=== PATIENT | male | born 1960 | race Caucasian/White ===

== ENCOUNTER 2018-03-25 16:28 | Outpatient (CLI) | payer OTHER ==
[2018-03-25 16:42] LABS: BASOPHILS % 0.2 (0.0-1.5); EOSINOPHILS % 0.8 % (0.0-6.8); MEAN CORPUSCULAR HEMOGLOBIN 27.3 pg (28.0-34.0); NEUTROPHILS # 4.5 # k/uL (1.4-7.7)
[2018-03-25 16:50] LABS: eGFR (Non-African) > 60
== END 2018-03-25 16:30 ==
LOC: LAB 16:28
PROVIDERS: ATTEND General Practice
DX: R10.9 Unspecified abdominal pain (principal)
CPT/HCPCS: 80053; 85025

== ENCOUNTER 2018-05-12 09:12 | Outpatient (CLI) | payer OTHER ==
[2018-05-12 09:25] LABS: BASOPHILS % 0.3 (0.0-1.5); EOSINOPHILS % 1.1 % (0.0-6.8); MEAN CORPUSCULAR HEMOGLOBIN 27.6 pg (28.0-34.0); MONOCYTES % 5.8 % (0.0-11.0)
[2018-05-12 09:26] LABS: NEUTROPHILS # 8.1 # k/uL (1.4-7.7)
[2018-05-12 09:28] LABS: eGFR (Non-African) > 60
== END 2018-05-12 09:13 ==
LOC: LAB 09:12
PROVIDERS: ATTEND General Practice
DX: K56.609 Unspecified intestinal obstruction, unspecified as to partial versus complete obstruction (principal); Z85.89 Personal history of malignant neoplasm of other organs and systems
CPT/HCPCS: 36415; 80053; 85025

== ENCOUNTER 2018-05-13 10:52 | Outpatient (CLI) | payer OTHER ==
[2018-05-13 11:03] LABS: MEAN CORPUSCULAR HEMOGLOBIN 27.2 pg (28.0-34.0)
[2018-05-13 11:04] LABS: BASOPHILS % 0.4 (0.0-1.5); EOSINOPHILS % 1.4 % (0.0-6.8); MONOCYTES % 9.7 % (0.0-11.0); NEUTROPHILS # 3.5 # k/uL (1.4-7.7)
[2018-05-13 11:20] LABS: eGFR (Non-African) > 60
== END 2018-05-13 10:53 ==
LOC: LAB 10:52
PROVIDERS: ATTEND General Practice
DX: E34.0 Carcinoid syndrome (principal); Z86.012 Personal history of benign carcinoid tumor
CPT/HCPCS: 36415; 80053; 85025